=== PATIENT | male | born 1970 | race Caucasian/White ===

== ENCOUNTER 2017-01-03 11:52 | Emergency (ER) | payer OTHER ==
--- NOTE | 2017-01-03 12:54 | EDPHY ---
General Narrative: CHIEF COMPLAINT: Left-sided rib pain, snowboarding injury HISTORY OF PRESENT ILLNESS: patient was snowboarding 12 days ago when he fell, landing on his left side. Did not strike his head or lose consciousness. Says he felt a sudden onset of pain in the left lower ribs. He was able [place]. Since then he has had pain in that area has been constant. It waxes and wanes but never goes away. Worse with bending over, palpation and deep inspiration. Improves with rest. Does not radiate. No shortness of breath. No fever chills. No back pain. No other associated complaints or modifying factors. PRIOR ORTHO INJURIES: None ESTABLISHED ORTHOPEDIST: none REVIEW OF SYSTEMS: Ten systems reviewed and are negative unless otherwise noted in the HPI EXAMINATION General Appearance: Alert, no distress Cardiovascular: regular rate and rhythm. No murmur.Pulses normal throughout. Brisk cap refill Respiratory: Lungs are clear to auscultation all danielle. There is tenderness over the left mid axillary line. No crepitus. Neurological: A&O, sensory symmetric, strength symmetric Skin: Warm and dry, no rash Extremities: Nontender, no pedal edema Psychiatric: Mood and affect normal DIFFERENTIAL DIAGNOSES: Including but not limited to rib fracture, rib contusion, rib subluxation, costochondritis, hemothorax, pneumothorax, pleural effusion, pulmonary contusion MDM: 12:40 p.m. fractures of left 9th, 10th and 11th ribs. No pneumothorax. No hemothorax. No evidence of pulmonary contusion. The patient is hemodynamically stable and tolerating his pain at rest. This happened 2 weeks ago as well. Discharged home with pain medication, pulmonary toilet tree and instructions to follow up with primary care physician. ED Precautions: Worsening pain. Erythema, edema, cyanosis, pallor, paresthesia or anesthesia. SUPERVISION: This patient was independently evaluated without the aide of supervising physician. - History Smoking Status: Never smoked - Objective Vital Signs: Initial Vital Signs Temperature (C) 98.4 F 01/03/17 11:55 Heart Rate 81 01/03/17 11:55 Respiratory Rate 48 H 01/03/17 11:55 Blood Pressure 117/104 H 01/03/17 11:55 O2 Sat (%) 96 01/03/17 11:55 O2 Delivery Mode Room Air Allergies/Adverse Reactions: No Known Allergies Allergy (Unverified 01/03/17 11:55) Home Medications: Medication Instructions Recorded Cyclobenzaprine [Flexeril 10 MG 10 mg PO TID PRN #15 tab 01/03/17 (*)] oxyCODONE HCL/ACETAMINOPHEN 1 each PO Q4-6PRN PRN #15 tablet 01/03/17 [Percocet 5-325 mg Tablet] Departure - Departure Disposition: Home, Routine, Self-Care Clinical Impression: Multiple rib fractures Qualifiers: Encounter type: initial encounter Fracture type: closed Laterality: left Qualified Code(s): S22.42XA - Multiple fractures of ribs, left side, initial encounter for closed fracture Condition: Good Instructions: Rib Fracture (ED) Additional Instructions: Apply heat anti-inflammatories as discussed for 5 days and stop. Pain medication as needed. Flexeril as needed. Follow-up here for worsening pain, shortness of breath or fever Referrals: KAIN CHOE [Primary Care Provider] - As per Instructions Prescriptions: Cyclobenzaprine [Flexeril 10 MG (*)] 10 mg PO TID PRN #15 tab PRN Reason: Spasms oxyCODONE HCL/ACETAMINOPHEN [Percocet 5-325 mg Tablet] 1 each PO Q4-6PRN PRN # 15 tablet PRN Reason: Pain, Breakthrough
[2017-01-03 12:56] VITALS: RESP 18
[2017-01-03 13:02] VITALS: BP 152/96; PULSE 98; TEMP 97.9; O2SAT 94
== END 2017-01-03 13:35 | disposition home or self-care (01) ==
DX: S22.42XA Multiple fractures of ribs, left side, initial encounter for closed fracture (principal); V00.311A Fall from snowboard, initial encounter; Y92.828 Other wilderness area as the place of occurrence of the external cause; Y99.8 Other external cause status; Y93.23 Activity, snow (alpine) (downhill) skiing, snowboarding, sledding, tobogganing and snow tubing